=== PATIENT | male | born 1995 | race Caucasian/White ===

== ENCOUNTER → 2020-11-03 13:08 | Outpatient (CLI) | payer OTHER, SELFPAY ==
[2020-11-03 14:22] LABS: COVID19 -Nasal RAPID Negative (Negative)
== END ==
PROVIDERS: Visit Provider Physician Assistant
DX: Z20.822 Contact with and (suspected) exposure to COVID-19 (principal)
CPT/HCPCS: 87635

== ENCOUNTER 2020-11-05 10:10 | Day surgery (SDC) | payer OTHER, SELFPAY ==
[2020-11-05] VITALS (9 sets, daily range): BP systolic 129–152; BP diastolic 79–94; PULSE 73–84; RESP 11–16; TEMP 36.1–36.8; O2SAT 97–100; BMI 29.1
--- NOTE | 2020-11-05 | DI.RAD.S_ITS ---
PROCEDURE: XR LUMBAR SPINE 2-3V INDICATIONS: L5-S1 MICRO-D TECHNIQUE: 2 intraoperative views of the lumbar spine were acquired. COMPARISON: [facility], CR, XR LUMBAR SPINE WITH OLBIQUES PLUS FLEXION EXTENSION, 09/17/2020, 8:31. FINDINGS: Surgical probe overlies the right L5-S1 disc space. IMPRESSION: Intraoperative guidance provided for procedure at L5-S1. Dictated by: Kamran Ortega M.D. on 11/05/2020 at 14:20 Approved by: Kamran Ortega M.D. on 11/05/2020 at 14:21
[2020-11-05] MEDS: LACTATED RINGERS 1,000 ML 42 ML IV (11:02)
[2020-11-05] MEDS: APREPITANT 40 MG CAPSULE PO (12:58)
[2020-11-05] MEDS: CEFAZOLIN 2 GM/100 ML FROZ.PIGGY IV (13:15)
--- NOTE | 2020-11-05 13:57 | SUR.OPER ---
Prone on spine table, head in foam head support, padded chest and pelvic supports, gel pad at knees, lower legs supported by pillows; nipples, genitalia and toes free of pressure, arms secured on foam padded arm boards at <90 degrees abduction. Tape over blanket at thigh secured to table.
[2020-11-05] MEDS: BUPIVACAINE 0.25% W/ EPI (PF) 10 ML VIAL INJ (14:02)
[2020-11-05] MEDS: methylPREDNISolone acet DEPO 40 MG/ML VIAL INJ (14:02)
--- NOTE | 2020-11-05 14:41 | P.OP_ITS ---
Operative Date/Time/Diagnoses Date of procedure: 11/05/20 Time of procedure: 12:41 Pre-op diagnosis: 1. L5-S1 disc herniation 2. L5-S1 radiculopathy Post-op diagnosis: same Procedure & Clinicians Procedure: 1. L5-S1 right microdiscectomy 2. Utilization of microsurgical technique and operating microscope Same procedure as scheduled: Yes Indications: Patient has been having chronic back pain and worsening lumbar radiculopathy. Patient failed multiple conservative management with worsening pain weakness and numbness in her lower extremity. Patient has been having difficulty performing activity of daily living. After discussing risks benefits of treatment options, patient elected proceed with surgery. Surgeon: Stephen Carreno Cupola Tapper Helper: Evelyn Palm Click Yes if Unassisted: No Anesthesia Type: General Operative Notes Closure Type: primary Specimen(s): none sent Estimated Blood Loss (mL): 10 Blood products transfused: none Procedure in detail: Patient was seen in the preoperative area. Risks and benefits of the surgery was discussed with the patient. Informed consent was obtained from the patient and placed in the chart. Surgical site was marked. Patient was taken to the operative room. General anesthesia was administered. Prophylactic antibiotic was given to the patient less than 30 min before the incision was made. Patient was placed into a prone position on the Ronald table. Patient's back was then prepped and draped in the sterile fashion. Time- out was performed at this time. Using AP and lateral C-arm imaging the interval between L5-S1 was identified and marked on patient's back. A 1 inch incision 1 in from midline was made on the right side. The fascia was incised in line with skin incision. Globus MARS retractors was placed inside the incision and docked onto the L5 lamina. Using microsurgical technique and operating microscope, a L5 laminotomy was performed using a Kerrison rongeur. Liagamentum flavum was resected at the site of the laminotomy. The disc space at L5-S1 was identified. Microdiscectomy was performed by incising the annulus with #11 blade. Microcurettes and pituitary was used to removed herniated disc fragments of disc from the epidural space. Patient had a large herniated disc causing significant impingement on the right S1 nerve root. After the diskectomy and decompression was completed the nerve root was free of any pressure. After the microdiskectomy was completed, the area medial lateral superior and i nferior to the area of the microdiskectomy was inspected and explored using a micro curette. No other impinging structure was identified. The wound was then irrigated with sterile normal saline. 40 mg Depo-Medrol was placed into the epidural space. The deep fascia was closed with 1-0 Vicryl. The subcutaneous tissue was closed with 2-0 Vicryl. The skin was closed with skin lily. Patient tolerated the procedure well. There were no complications. Patient was transferred recovery room in stable condition. Complications: none Post-operative Condition: stable Disposition: PACU Plan for aftercare: Discharge to home
--- NOTE | 2020-11-05 14:44 | PM.PREOP ---
Pre-operative Note COVID-19 COVID-19 status: Negative Result date/Date tested (Pos, Neg/Pending): 11/03/20 Interval Note History & Physical reviewed/Exam performed by Physician: Yes Changes to H&P: No
[2020-11-05] MEDS: OXYCODONE/ACETAMINOPHEN 5/325 TABLET 1 TAB PO ×2 (15:04→15:37)
[2020-11-05] MEDS: hydrOXYzine 50 MG/ML INJ 25 MG IM (15:18)
[2020-11-05] MEDS: ONDANSETRON 4 MG ODT SL (16:28)
--- NOTE | 2020-11-05 16:38 | SUR.PHASEII ---
Pt given zofran odt for nausea. Pt given a snack prior to dc and now tolerating without difficulty. VSS and pt feels better and able to go home.
== END 2020-11-05 16:39 | disposition home or self-care (01) ==
PROVIDERS: Referring Provider Orthopaedic Surgery Orthopaedic Surgery of the Spine; Visit Provider Orthopaedic Surgery Orthopaedic Surgery of the Spine
PROC: (CPT 63030; principal; 2020-11-05 11:45)
DX: M51.17 Intervertebral disc disorders with radiculopathy, lumbosacral region (principal)
CPT/HCPCS: 63030; 72100; 76000; J0690; J1030; J1100; J2250; J2405; J2704; J3010; J3410; J8501

== ENCOUNTER → 2024-08-31 16:40 | Outpatient (CLI) | payer OTHER, SELFPAY ==
--- NOTE | 2024-08-31 | DI.MRI.S_ITS ---
PROCEDURE: MR LUMBAR SPINE WO CON INDICATIONS: radiculopathy TECHNIQUE: Noncontrast sagittal T1 spin echo and T2 fast echo, sagittal STIR, and T2 fast spin echo through the lumbar spine. In cases with scoliosis, additional coronal T2 fast spin echo may be performed. COMPARISON: [facility], CR, XR LUMBAR SPINE 2 OR 3 VIEWS, 08/23/2024, 13:32. [facility] Outside Film, MR, MR LUMBAR SPINE WITHOUT CONTRAST, 05/01/2022, 10:45 (images only, no report. FINDINGS: Image quality: Excellent. Alignment and Curvature: There is minimal retrolisthesis seen at the L5-S1 level. Bone Marrow: Marrow is of normal overall signal. Scattered foci are seen, which are hyperintense on T1-weighted and T2-weighted imaging, which are most consistent with benign vertebral body hemangiomas. No acute vertebral body compression fractures. Spinal Cord: Conus medullaris terminates at the L1 level. Visualized cord demonstrates normal signal and size. Paraspinous Soft Tissues: No paravertebral masses. T12-L1: Normal appearance. L1-L2: Normal appearance. L2-L3: Normal appearance. L3-L4: The disc height and disk signal are well-preserved. Mild generalized disc bulge is seen. Mild facet joint hypertrophy is seen. There is mild right-sided and no left-sided neural foraminal narrowing. Minimal central canal narrowing is seen. When comparison is made with the prior images, these findings are similar. L4-L5: Mild loss of disc height is seen. Loss of disc signal is seen. Moderate generalized disc bulge is seen. There is a superimposed central disc protrusion. There is a focal annular fissure seen posteriorly. Mild facet joint hypertrophy is seen. Moderate bilateral neural foraminal narrowing can be seen, left worse than right. Moderate central canal narrowing is seen. When comparison is made with the prior images, these findings are similar. L5-S1: Moderate loss of disc height is seen. Loss of disc signal is seen. Reactive marrow endplate changes are seen which are hypointense on T1-weighted imaging and hyperintense on T2 weighted imaging, which is most consistent with edema (Modic type I changes). Moderate generalized disc bulge is seen. There is a superimposed central disc protrusion. There is a focal annular fissure seen posteriorly. Prior right hemilaminectomy change can be seen. There is at least moderate left-sided and moderate right-sided neural foraminal narrowing. Moderate central canal narrowing is seen, which is largely caused by epidural lipomatosis. These degenerative changes are similar to the prior outside images. IMPRESSION: Lower lumbar spine degenerative changes are seen, which are similar to the prior outside 2021 images. Dictated by: Ubaldo Chadwick M.D. on 08/31/2024 at 16:28 Approved by: Ubaldo Chadwick M.D. on 08/31/2024 at 16:32
== END ==
LOC: MRI 16:41
PROVIDERS: Referring Provider Orthopaedic Surgery Orthopaedic Surgery of the Spine; Visit Provider Orthopaedic Surgery Orthopaedic Surgery of the Spine
DX: M47.26 Other spondylosis with radiculopathy, lumbar region (principal)
CPT/HCPCS: 72148